=== PATIENT | female | born 1955 | race Caucasian/White ===

== ENCOUNTER → 2016-10-16 | Outpatient (CLI) | payer BC | LOC: BHSO 13:38 | DX: F41.1 Generalized anxiety disorder (principal) ==

== ENCOUNTER → 2016-11-01 | Outpatient (CLI) | payer BC | LOC: BHSO 10:00 | DX: F33.1 Major depressive disorder, recurrent, moderate (principal) ==

== ENCOUNTER → 2016-11-15 | Outpatient (CLI) | payer BC | LOC: BHSO 14:01 | DX: F33.0 Major depressive disorder, recurrent, mild (principal) ==

== ENCOUNTER → 2016-12-20 | Outpatient (CLI) | payer BC | LOC: BHSO 14:59 | DX: F41.1 Generalized anxiety disorder (principal) ==

== ENCOUNTER → 2017-01-28 | Outpatient (CLI) | payer BC | LOC: BHSO 14:57 | DX: F33.1 Major depressive disorder, recurrent, moderate (principal) ==

== ENCOUNTER → 2017-01-29 | Outpatient (CLI) | payer BC | LOC: BHSO 13:42 | DX: F41.1 Generalized anxiety disorder (principal) ==

== ENCOUNTER → 2017-03-12 | Outpatient (CLI) | payer BC | LOC: BHSO 14:56 | DX: F41.1 Generalized anxiety disorder (principal) ==

== ENCOUNTER → 2017-04-17 | Outpatient (CLI) | payer BC | LOC: BHSO 13:59 | DX: F41.1 Generalized anxiety disorder (principal) ==

== ENCOUNTER → 2017-05-17 | Outpatient (CLI) | payer BC | LOC: BHSO 09:56 | DX: F41.1 Generalized anxiety disorder (principal) ==

== ENCOUNTER → 2017-05-31 | Outpatient (CLI) | payer BC | LOC: BHSO 10:52 | DX: F41.1 Generalized anxiety disorder (principal) ==

== ENCOUNTER → 2017-06-21 | Outpatient (CLI) | payer BC | LOC: BHSO 13:59 | DX: F33.1 Major depressive disorder, recurrent, moderate (principal) ==

== ENCOUNTER → 2017-09-17 | Outpatient (CLI) | payer BC | LOC: BHSO 13:59 | DX: F33.0 Major depressive disorder, recurrent, mild (principal) ==

== ENCOUNTER → 2017-10-11 | Outpatient (CLI) | payer BC | LOC: BHSO 15:21 | DX: F31.73 Bipolar disorder, in partial remission, most recent episode manic (principal) | CPT/HCPCS: G0463 ==

== ENCOUNTER → 2017-10-22 | Outpatient (CLI) | payer BC | LOC: BHSO 13:57 | DX: F33.0 Major depressive disorder, recurrent, mild (principal) ==

== ENCOUNTER → 2017-11-20 | Outpatient (CLI) | payer BC | LOC: BHSO 14:07 | DX: F41.1 Generalized anxiety disorder (principal) ==

== ENCOUNTER → 2017-11-29 | Outpatient (CLI) | payer BC | LOC: BHSO 15:19 | DX: F41.1 Generalized anxiety disorder (principal) | CPT/HCPCS: G0463 ==

== ENCOUNTER → 2017-12-26 | Outpatient (CLI) | payer BC | LOC: BHSO 14:58 | DX: F33.1 Major depressive disorder, recurrent, moderate (principal) ==

== ENCOUNTER → 2018-02-04 | Outpatient (CLI) | payer BC | LOC: BHSO 15:58 | DX: F33.1 Major depressive disorder, recurrent, moderate (principal) ==

== ENCOUNTER → 2018-03-05 | Outpatient (CLI) | payer BC | LOC: BHSO 13:59 | DX: F41.1 Generalized anxiety disorder (principal) | CPT/HCPCS: G0463 ==

== ENCOUNTER → 2018-03-18 | Outpatient (CLI) | payer BC | LOC: BHSO 09:56 | DX: F41.1 Generalized anxiety disorder (principal) ==

== ENCOUNTER → 2018-05-20 | Outpatient (CLI) | payer BC | LOC: BHSO 10:57 | DX: F33.0 Major depressive disorder, recurrent, mild (principal) ==

== ENCOUNTER → 2018-06-05 | Outpatient (CLI) | payer BC | LOC: BHSO 10:45 | DX: F33.42 Major depressive disorder, recurrent, in full remission (principal) | CPT/HCPCS: G0463 ==

== ENCOUNTER → 2018-07-15 | Outpatient (CLI) | payer BC | LOC: BHSO 14:02 | DX: F41.1 Generalized anxiety disorder (principal) ==

== ENCOUNTER → 2018-07-22 | Outpatient (CLI) | payer BC | LOC: COL.RAD 10:00 | DX: M41.85 Other forms of scoliosis, thoracolumbar region (principal) ==

== ENCOUNTER → 2018-10-28 | Outpatient (CLI) | payer BC ==
[2018-10-28 13:28] LABS: BASO % 0.6 % (0.0-2.0); EOS # 0.3 (0.0-0.7); EOS % 6.5 % (0-4.0); GRAN # 3.1 (1.4-6.5); GRAN % 62.2 % (42.2-75.2); HEMATOCRIT 38.5 % (37.0-47.0); HEMOGLOBIN 13.3 g/dl (12.5-16.0); LYMPH # 1.2 (1.2-3.4); LYMPH % 23.6 % (20.0-51.0); MEAN CELL VOLUME 96 fl (80.0-100.0); MEAN CORPUSCULAR HEMOGLOBIN 33 pg (27.0-31.0); MEAN CORPUSCULAR HGB CONC 35 g/dl (33.0-37.0); MEAN PLATELET VOLUME 11.1 fl (7.4-10.4); MONO # 0.4 (0.1-0.6); MONO % 7.1 % (1.7-9.3); PLATELET COUNT 218 K/mm3 (130-400); REDCELL DISTRIBUTION WIDTH-CV 11.7 % (11.5-14.5)
[2018-10-28 13:35] LABS: ALBUMIN 4.2 gm/dL (3.5-5.0); BILIRUBIN,TOTAL 0.8 mg/dL (0.0-1.0); CALCIUM 9.9 mg/dL (8.4-10.2); CREATININE, serum 0.84 mg/dL (0.52-1.25); TOTAL PROTEIN 7.1 gm/dL (6.4-8.2)
[2018-10-28 13:52] LABS: POTASSIUM 2.9 mmol/L (3.4-5.0)
== END ==
LOC: COL.RAD 12:44 → COL.LAB 12:44
PROVIDERS: Internal Medicine Gastroenterology
DX: M41.85 Other forms of scoliosis, thoracolumbar region (principal); K63.89 Other specified diseases of intestine; R68.89 Other general symptoms and signs; Z90.710 Acquired absence of both cervix and uterus
CPT/HCPCS: Q9967

== ENCOUNTER → 2018-11-21 | Outpatient (CLI) | payer BC | LOC: BHSO 14:58 | DX: F41.1 Generalized anxiety disorder (principal) ==

== ENCOUNTER 2018-11-22 23:27 | Emergency (ER) | payer BC | END 2018-11-23 01:28 | disposition short-term general hospital (02) | LOC: COL.ER 23:27 | DX: I63.9 Cerebral infarction, unspecified (principal); G81.94 Hemiplegia, unspecified affecting left nondominant side; R47.81 Slurred speech; Z90.710 Acquired absence of both cervix and uterus ==